=== PATIENT | male | born 1960 | race Two or more races ===

== ENCOUNTER 2024-10-24 05:40 | Day surgery (SDC) | payer MEDICAID, SELFPAY ==
--- NOTE | 2024-10-23 06:00 | EKG_ITS ---
[facility] Test Date: 2024-10-23 Pat Name: BASILIA SINGH Department: Room: - Gender: Male [employer] Cutter: SNEHA : 1960 Requested By: Tico Subramanian Order Number: [id number] Reading MD: Tico Subramanian Measurements Intervals [place] Rate: 86 P: 66 IN: 146 QRS: 45 QRSD: 75 T: 69 QT: 368 QTc: 441 Interpretive Statements SINUS RHYTHM POSSIBLE LEFT ATRIAL ENLARGEMENT Compared to ECG 02/29/2024 08:29:20 Sinus tachycardia no longer present ST (T wave) deviation no longer present /store/S0/[id number]/ecg/[id number].pdf
[2024-10-23 10:54] LABS: Basophils % (Auto) 1 % (0-2.5); Eosinophils # (Auto) 0.1 Thou/mm3 (0.0-0.5); Eosinophils % (Auto) 3 % (0-10); Hematocrit 35.6 % (41.0-53.0); Hemoglobin 12.2 g/dL (13.5-16.0); Immature Granulocytes % (Auto) 0 % (0-0); Immature Granulocytes Auto 0.01 Thou/mm3 (0.00-0.00); Lymphocytes # (Auto) 1.4 Thou/mm3 (1.0-4.8); Lymphocytes % (Auto) 37 % (10-50); Mean Corpuscular HGB Conc 34.3 g/dl (31.0-37.0); Mean Corpuscular Hemoglobin 31.6 pg (25.0-35.0); Mean Corpuscular Volume 92 fL (80-100); Monocytes # (Auto) 0.5 Thou/mm3 (0.0-0.8); Monocytes % (Auto) 14 % (0-12); Neutrophils # (Auto) 1.7 Thou/mm3 (1.8-7.7); Neutrophils % (Auto) 45 % (37-80); Nucleated Red Blood Cell % 0 /100 WBC (0); Platelet Count 211 Thou/mm3 (140-440); RDW Standard Deviation 41.8 fL (35.1-43.9); Red Blood Count 3.86 Miln/mm3 (4.50-5.90); White Blood Count 3.8 Thou/mm3 (3.8-10.6)
[2024-10-23 11:03] LABS: Alanine Aminotransferase 62 U/L (10-49); Albumin, Serum 4.2 gm/dL (3.4-4.8); Albumin/Globulin Ratio 1.5 (1.2-2.2); Alkaline Phosphatase 62 U/L (46-116); Anion Gap 7 (7-16); Aspartate Amino Transferase 94 U/L (0-34); BUN/Creatinine Ratio 21 Ratio (12-20); Bilirubin,Total 0.8 mg/dL (0.3-1.2); Blood Urea Nitrogen 17 mg/dL (9-23); Calcium 9.5 mg/dL (8.3-10.6); Calcium (Corrected) 9.5 mg/dL (8.5-10.1); Carbon Dioxide 33.1 mMol/L (20.0-31.0); Chloride 108 mMol/L (98-107); Creatinine (Component) 0.8 mg/dL (0.6-1.3); Globulin 2.8 gm/dL (2.3-3.5); Glucose 96 mg/dL (74-106); Osmolality,Calculated 295 (275-295); Potassium 3.7 mMol/L (3.4-5.1); Sodium 148 mMol/L (136-145); eGFR > 60 See Note
[2024-10-23 11:07] LABS: Partial Thromboplastin Time 26.5 Seconds (22.0-36.0); Prothrombin Time 10.5 Seconds (9.0-12.2)
[2024-10-24] VITALS (8 sets, daily range): BP systolic 96–162; BP diastolic 75–102; PULSE 70–92; RESP 11–18; TEMP 36.2–37.1; O2SAT 95–100; BMI 20.8
[2024-10-24] MEDS: RINGERS LACTATED 1000 ML 1,000 ML 20 ML IV (06:48)
--- NOTE | 2024-10-24 07:20 | CHAP ---
Patient was dozing, but woke up when I came in. I spoke briefly with him giving encouragement and prayer.
--- NOTE | 2024-10-24 09:24 | SUR.PHASEI ---
pt received from OR in recovery bay 4. pt obtunded, breathing unlabored on oxymask 8l, oral airway in place. v/s stable. pt dressing to lower left abd cdi. report received from Felix WATTS and Dr. Subramanian.
--- NOTE | 2024-10-24 09:33 | PD.SUROPNT ---
Date of Procedure 10/24/24 Pre Op Diagnosis Symptomatic left inguinal hernia Post Op Diagnosis Symptomatic left indirect inguinal hernia Procedure Repair of the left indirect inguinal hernia with high ligation of the sac and placement of 2 x 4 Marlex mesh on the floor of the inguinal canal. Findings Patient had indirect hernia with a sac which was firmly adherent to the cord structures. There was no weakness in the inguinal floor despite his age Procedure Description After the patient was given endotracheal general anesthesia is lower abdomen was prepped with chloreprep solution and draped. Standard left t groin incision was made in the external oblique was reached. Incision was made over the external oblique and the patient was found to have a large sac next to the cord structures. The cord structures were encircled around a Deedee drain and the sac was easily . The sac did not contain any intra-abdominal structures. The mouth of the sac was narrow.. I suture ligated this with 2-0 chromic and then divided. Another 2-0 chromic suture ligation was used to prevent any slippage of the previous suture. Then I palpated the floor of the inguinal canal which appeared to be strong. I placed a 2 x 4 Marlex mesh and attached it medially to the pubic tubercle and laterally it was tucked underneath the external oblique after crossing the cord structures. I placed one stitch of Prolene lateral to the cord structures. Then external oblique was closed with running 2-0 Vicryl and subcutaneous tissues was approximated with 30 plain I injected half percent Marcaine with epinephrine for analgesia and the skin was closed with 4-0 Monocryl. Dressing was applied with Adaptic and 4 x 4 and the patient tolerated the procedure well and left operating room in stable condition. Anesthesia GETA Implants 2 x 4 Marlex mesh in the inguinal floor Pathology / specimen None Estimated Blood Loss 10 Surgeon Paul Starr MD Surgical Staff Operation Date: 10/24/24 08:00 Case Staff Anesthesiologist: Tico Subramanian RNrefund specialist: Nichol Stock
--- NOTE | 2024-10-24 10:01 | SUR.PHASEII ---
pt able to tolerate oral fluids without difficulty swallowing or nausea/vomiting.
--- NOTE | 2024-10-25 15:54 | PD.ANESPROG ---
Documentation for date of: 10/25/24 POST ANESTHESIA NOTE: Patient had GETA for L inguinal hernia repair yesterday. I just called and spoke with him on the phone and he denied any problems from anesthesia and said I've been walking around and was thankful. Tico Subramanian MD Anesthesia Progress Note Progress Note Most recent Vital Signs: Last Vital Signs Temp 97.4 F 10/24/24 10:20 Pulse 74 10/24/24 10:20 Resp 14 10/24/24 10:20 BP 133/82 H 10/24/24 10:20 Pulse Ox 95 10/24/24 10:20 O2 Flow Rate 3 10/24/24 09:40
== END 2024-10-24 10:30 | disposition home or self-care (01) ==
PROVIDERS: PCP Family Medicine; Referring Provider Surgery; Visit Provider Surgery
PROC: (CPT 49505; principal; 2024-10-24 08:00)
DX: K40.90 Unilateral inguinal hernia, without obstruction or gangrene, not specified as recurrent (principal); Z01.810 Encounter for preprocedural cardiovascular examination; E78.5 Hyperlipidemia, unspecified; H35.20 Other non-diabetic proliferative retinopathy, unspecified eye; G56.01 Carpal tunnel syndrome, right upper limb
CPT/HCPCS: 49505; 36415; 80053; 85025; 85610; 85730; 93005; A4217; A4649; C1781; J1100; J2704; J2710; J2765; J3010; J3490; J7120; A9270; J1596

== ENCOUNTER 2025-04-05 13:56 | Emergency (ER) | payer MEDICAID, SELFPAY ==
[2025-04-05 13:59] VITALS: BP 145/85; PULSE 98; RESP 16; TEMP 37.1; O2SAT 95
--- NOTE | 2025-04-05 14:00 | XR_ITS ---
Examination: CTA abdomen, with intravenous contrast. CTA pelvis, with intravenous contrast. 2-D sagittal and coronal reconstructions. 3-D reconstructions. Date and time of exam: April 05, 2025 1616 hours INDICATIONS: Gastrointestinal bleeding, clinical diagnosis AVM, angiodysplasia, rectal bleeding several days with weakness CTDI vol (mgy) 6.61 DLP (MGycm) 380 Technique: Multiple CTA images, 2.0 mm slice thickness, obtained abdomen, pelvis, with the high-resolution 64 slice scanner. 100 cc Isovue 370 is administered intravenously. Sagittal and coronal 2-D reconstructions are obtained. 3-D reconstructions, angiographic images are obtained. 3-D postprocessing, including vascular maximum intensity projections. Low dose protocols were performed. One or more of the following dose reduction techniques were used; automated exposure control, adjustment of the mA and/or KV according to patient size, use of iterative reconstruction technique. Findings: 6 mm nodule left lower lobe No focal liver or splenic lesions Liver is irregular in contour with fatty infiltration No gallstones No pancreatic mass No common Common bile duct stones Abdominal aorta normal size No hydronephrosis No abnormal contrast extravasation in the gastrointestinal tract Normal appendix No bladder mass Mild thickening of the rectal wall Transverse prostate dimension 3.8 cm 3-D images do not demonstrate angiodysplasia or arteriovenous malformation IMPRESSION: Suspect primary hepatocellular disease No angiodysplasia or AV malformation is identified No contrast accumulation in the gastrointestinal tract Mild thickening of the rectal wall, clinical correlation advised
[2025-04-05 14:03] VITALS: BMI 25.0
--- NOTE | 2025-04-05 14:08 | EDNOTE_ITS ---
ED GI Bleed RME/HPI General Chief complaint: GI Bleed Stated complaint: RECTAL BLEED Time Seen by Provider: 04/05/25 14:00 Arrival date/time: 04/05/25 13:56 Limitations: no limitations RME / HPI RME / HPI Narrative: DR. PARDO MAIN ED EVALUATION: 64-year-old male with a history of hypertension, alcohol use disorder, and prior methamphetamine use presents to the Emergency Department [facility] with complaint of rectal bleeding. Patient reports intermittent fainting episodes and falling a couple times the past two weeks. States he drinks two tall cans of beer daily then states he drinks 8.1 beers, he is intoxicated. Per EMS, blood pressure on arrival was 157/112, blood glucose 127. Denies smoking or drug use currently but has a history of methamphetamine use. Reports chills daily but denies nausea. Ulcers were found previously on endoscopy and colonoscopy. Related Data Home Medications ?Medication ?Instructions ?Recorded ?Confirmed No Known Home Medications 10/23/2410/14 Allergies Allergy/AdvReac Type Severity Reaction Status Date / Time No Known Allergies Allergy Verified 04/05/25 14:06 Review of Systems Review of Systems Systems Reviewed: All systems reviewed, normal except as documented Past Medical History Past Medical History CARDIAC: Positive Hypertension RESPIRATORY: Positive Chronic Obstructive Pulmonary Disease (COPD) and Asthma (copd history) GASTROINTESTINAL: Positive Gastrointestinal Disorders and Obesity MUSCULOSKELETAL: Positive Musculoskeletal Disorders and Arthritis ENT: Positive Ear Infection PSYCHO/SOCIAL: Positive Recreational Drug Use (meth in past) OTHER HISTORY: Positive Hospitalization (surgery) Social History SMOKING STATUS: Current some day smoker SUBSTANCE USE: does not use ED Exam General Limitations: Present no limitations General appearance: Present alert and in no apparent distress Head Head exam: Present atraumatic, normocephalic and normal inspection Eye Eye exam: Present normal appearance, PERRL and EOMI ENT ENT exam: Present normal exam, normal oropharynx and mucous membranes moist Neck Neck exam: Present normal inspection, full ROM and trachea midline Chest Chest inspection: Present normal inspection and symmetric chest wall rise Respiratory Respiratory exam: Present normal lung sounds bilaterally Cardiovascular Cardiovascular exam: Present regular rate, normal rhythm and normal heart sounds Abdominal Exam Abdominal exam: Present soft and normal bowel sounds Extremities Exam Extremities exam: Present normal inspection and full ROM Back Exam Back exam: Present normal inspection and full ROM Neurological Exam Neurological exam: Present alert, oriented X3 and CN II-XII intact Psychiatric Psychiatric exam: Present normal affect and normal mood Skin Skin exam: Present warm, dry, intact and normal color Course Quality Measures none Orders Category Date Time Status CT Screening NOW Care 04/05/25 14:[address] angio abdomen pelvis Stat Exams 04/05/25 14:00 Completed CBC Stat Lab 04/05/25 14:09 Completed CMP [Comprehensive Metabolic Panel] Stat Lab 04/05/25 14:09 Completed Drug Screen,Urine Stat Lab 04/05/25 14:00 Stop Req INR [Prothrombin Time with INR] Stat Lab 04/05/25 14:09 Completed Salicylate Stat Lab 04/05/25 14:09 Completed Type and Screen Stat Lab 04/05/25 14:09 Completed Folic Acid Inj Med 04/05/25 14:04 Discontinued 1 mg IVP X1 ONE Thiamine Inj [Vitamin B-1 Inj] Med 04/05/25 14:15 Discontinued 100 mg IVP X1 ONE Thiamine Inj [Vitamin B-1 Inj] 100 mg Med 04/05/25 14:01 Discontinued Sodium Chloride 0.9% [Ns] 100 ml IV NOW Vital Signs Vital signs: Vital Signs Temperature 98.7 F 04/05/25 13:59 Pulse Rate 98 04/05/25 13:59 Respiratory Rate 16 04/05/25 13:59 Blood Pressure 145/85 H 04/05/25 13:59 Pulse Oximetry (%) 95 04/05/25 13:59 Oxygen Delivery Method Room Air 04/05/25 13:59 GI Bleed MDM Narrative MDM Narrative:: I, Daniela Mariano am scribing for and in the presence of Dr. Pardo. Patient is a 64-year-old male with medical history notable for alcohol use disorder that is in the emergency department intoxicated and concerned about having multiple episodes of bright red blood per rectum. Vital signs and exam as below. Concern for angiodysplasia, hemorrhoids. Patient denies hematemesis, hematuria. Less likely variceal bleed. Ordered labs, CT angio of the abdomen, also medication for symptom relief. Labs without acute hematologic or significant metabolic abnormality. Patient's hemoglobin is largely at his baseline. CT angio did not show any acute abnormalities, no evidence of AVM or other source for patient's GI bleed. On reevaluation patient hemodynamically stable not in distress now is clinically sober, ambulating without any difficulties, GCS 15, answering questions appropriately. 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 Patient advised to follow-up with a cigarette packer as an outpatient. Patient data External records reviewed:: [facility] previous records and EMS form Clinical information provided by:: patient and EMS Social determinants that could affect healthcare access:: substance use Patient has the following chronic illnesses:: hypertension, alcohol use disorder, and prior methamphetamine use How is presenting disease/condition affected by chronic disease/condition?: exacerbated by Evaluation data The following diagnostics were reviewed and interpreted by me:: lab results and radiology exam(s) Lab and/or radiology exams considered but not ordered:: none Interpretation Summary: No significant hematologic or metabolic abnormality. Patient with mild thickening of the rectal wall, fatty liver. Patient also with a lung nodule. Medications / Prescriptions Medications or Prescriptions considered but not ordered:: none Medication administrations:: Medication Administration History Discontinued Medications Folic Acid (Folic Acid Inj 1 Mg/0.2 Ml) 1 mg IVP X1 ONE Stop: 04/05/25 14:05 Last Admin: 04/05/25 14:48 Dose: 1 mg Documented By: RAUL Thiamine HCl 100 mg/ Sodium (Chloride) 101 mls @ 202 mls/hr IV NOW ONE Stop: 04/05/25 14:30 Last Admin: 04/05/25 14:31 Dose: Not Given Documented By: SAI Non-Admin Reason: Discontinued Thiamine HCl (Thiamine Inj 100 Mg/Ml Vial 2 Ml) 100 mg IVP X1 ONE Stop: 04/05/25 14:16 Last Admin: 04/05/25 14:48 Dose: 100 mg Documented By: RAUL see above Consultations Consultation(s) initiated? (list below): No Diagnosis GI bleed differential diagnosis: other (lower GI bleed from rectal ulceration, alcohol-related coagulopathy, and colonic neoplasm) Most likely diagnosis given after review of the tests above:: Alcohol use disorder, rectal bleeding Admission Indicated Admission indicated?: not indicated Admission Request Was there a request for admission?: No Disposition Plan Disposition Plan: Discharge Discharge Attestation Discharge Attestation: The patient and all family members were given an opportunity to ask questions and understood the discharge instructions. Discharge instructions specifically effects, indications for sooner follow up or return to the emergency department, and the expected course of current diagnosis. Patient condition: Stable Discharge Plan Plan Patient Disposition: HOME (Self Care) Prescriptions/Referrals Prescriptions/Med Rec: No Action No Known Home Medications Referrals: No Primary/Family,Physician [Primary Care Provider] - In 1 week Problem List Clinical Impression: Alcohol use disorder, Rectal bleed Patient/Caregiver Discharge Instructions Education Materials: Bleeding Gastrointestinal Additional Instructions: Your hemoglobin was stable, there is no signs of shock. Your CT scan of your abdomen looking at the blood vessels of your abdomen did not show any evidence of an acute bleed or other abnormality. It is important that you follow-up with your primary care doctor and request evaluation with a cigarette packer as you may benefit from a colonoscopy. I also recommend sobriety. Print Language: Panamanian Stand Alone Forms: Leatha Award Info., Patient Portal Info Letter
[2025-04-05 14:27] LABS: Basophils # (Auto) 0.1 Thou/mm3 (0.0-0.2); Basophils % (Auto) 1 % (0-2.5); Eosinophils # (Auto) 0.1 Thou/mm3 (0.0-0.5); Eosinophils % (Auto) 2 % (0-10); Hematocrit 34.1 % (41.0-53.0); Hemoglobin 11.9 g/dL (13.5-16.0); Immature Granulocytes Auto 0.00 Thou/mm3 (0.00-0.00); Lymphocytes # (Auto) 1.8 Thou/mm3 (1.0-4.8); Lymphocytes % (Auto) 37 % (10-50); Mean Corpuscular HGB Conc 34.9 g/dl (31.0-37.0); Mean Corpuscular Hemoglobin 32.2 pg (25.0-35.0); Mean Corpuscular Volume 92 fL (80-100); Monocytes # (Auto) 0.5 Thou/mm3 (0.0-0.8); Monocytes % (Auto) 11 % (0-12); Neutrophils # (Auto) 2.4 Thou/mm3 (1.8-7.7); Neutrophils % (Auto) 49 % (37-80); Nucleated Red Blood Cell # 0.00 Thou/mm3 (0.00-0.00); Nucleated Red Blood Cell % 0 /100 WBC (0); Platelet Count 130 Thou/mm3 (140-440); RDW Standard Deviation 53.5 fL (35.1-43.9); Red Blood Count 3.69 Miln/mm3 (4.50-5.90); White Blood Count 4.9 Thou/mm3 (3.8-10.6)
[2025-04-05 14:39] LABS: INR 1.0 (0.9-1.3); Prothrombin Time 10.5 Seconds (9.0-12.2)
[2025-04-05 14:44] LABS: Alanine Aminotransferase 42 U/L (10-49); Albumin, Serum 4.4 gm/dL (3.4-4.8); Albumin/Globulin Ratio 1.4 (1.2-2.2); Alkaline Phosphatase 73 U/L (46-116); Anion Gap 11 (7-16); Aspartate Amino Transferase 92 U/L (0-34); BUN/Creatinine Ratio 11 Ratio (12-20); Bilirubin,Total 0.8 mg/dL (0.3-1.2); Blood Urea Nitrogen 9 mg/dL (9-23); Calcium 9.0 mg/dL (8.3-10.6); Calcium (Corrected) 9.0 mg/dL (8.5-10.1); Carbon Dioxide 23.8 mMol/L (20.0-31.0); Chloride 104 mMol/L (98-107); Creatinine (Component) 0.8 mg/dL (0.6-1.3); Estimated Creatinine Clearance 92.6 mL/min (>60); Globulin 3.2 gm/dL (2.3-3.5); Glucose 130 mg/dL (74-106); Osmolality,Calculated 278 (275-295); Potassium 4.0 mMol/L (3.4-5.1); Salicylate < 3.0 mg/dL; Sodium 139 mMol/L (136-145); Total Protein 7.6 gm/dL (5.7-8.2); eGFR > 60 See Note
[2025-04-05] MEDS: THIAMINE INJ 100 MG/ML VIAL 2 ML IVP (14:48)
[2025-04-05] MEDS: FOLIC ACID INJ 1 MG/0.2 ML IVP (14:48)
[2025-04-05 15:59] VITALS: BP 114/64; PULSE 86; RESP 18; TEMP 36.5; O2SAT 97
[2025-04-05 17:24] VITALS: BP 126/87; PULSE 76; RESP 19; TEMP 36.6; O2SAT 96
== END 2025-04-05 17:55 | disposition home or self-care (01) ==
PROVIDERS: Emergency Provider Emergency Medicine
DX: F10.929 Alcohol use, unspecified with intoxication, unspecified (principal); K76.0 Fatty (change of) liver, not elsewhere classified; R91.1 Solitary pulmonary nodule; K62.5 Hemorrhage of anus and rectum
CPT/HCPCS: 36415; 74174; 80053; 80307; 80329; 81001; 85025; 85610; 86850; 86900; 86901; 96374; 96375; 99283; A4649; J3411; J3490; Q9967; G0480